=== PATIENT | male | born 1945 | race Caucasian/White ===

== ENCOUNTER 2024-10-03 14:46 | Outpatient (REF) | payer MEDICARE, SELFPAY ==
--- NOTE | 2024-10-03 14:53 | EMG_ITS ---
Chief complaint: Left arm shakes whenever he looks up or does overhead activities. He denies pain or numbness or weakness. Reason for referral: Evaluate for radiculopathy Referred by: Dr. Carlisle Procedure done: Left upper extremity NCS/EMG Precautions and/or limitations: None The limb temperature was monitored continuously and remained between 32-36 degrees C during the performance of the NCS. Ulnar motor NCS was performed with moderate elbow flexion between 70-90 degrees, with across-elbow distance of 10 cm. Nerve Conduction Studies Anti Sensory Summary Table ?Stim Site NR Onset (ms) Norm Onset (ms) Peak (ms) Norm Peak (ms) O-P Amp (?V) Norm O-P Amp Site1 Site2 Delta-0 (ms) Dist (cm) Jarvis (m/s) Norm Jarvis (m/s) Left Median Anti Sensory (2nd Digit) Wrist ? 3.7 4.4 <3.6 7.1 >10 Wrist 2nd Digit 3.7 14.0 38 Left Radial Anti Sensory (Thumb) Forearm ? 2.1 2.7 <3.1 13.5 Forearm Thumb 2.1 0.0 Left Ulnar Anti Sensory (5th Digit) Wrist ? 2.8 3.5 <3.7 3.6 >15.0 Wrist 5th Digit 2.8 14.0 50 Motor Summary Table ?Stim Site NR Onset (ms) Norm Onset (ms) O-P Amp (mV) Norm O-P Amp iAmp (mV) Amp (1st) (%) Site1 Site2 Delta-0 (ms) Dist (cm) Jarvis (m/s) Norm Jarvis (m/s) Left Median Motor (Abd Poll Brev) Wrist ? 4.8 <3.9 6.1 >4.5 6.8 100.0 Elbow Wrist 4.5 22.0 49 >45 Elbow ? 9.3 4.4 5.2 72.1 Left Ulnar Motor (Abd Dig Minimi) Wrist ? 2.9 <3.0 6.7 >5 8.1 100.0 B Elbow Wrist 4.4 18.0 41 >45 B Elbow ? 7.3 6.3 7.2 94.0 A Elbow B Elbow 1.6 10.0 62 >45 A Elbow ? 8.9 6.0 6.6 89.6 Left Ulnar (FDI) Motor (FDI) Wrist ? 4.5 <3.0 3.3 >5 4.1 100.0 B Elbow Wrist 4.3 18.0 42 >45 B Elbow ? 8.8 3.1 3.7 93.9 A Elbow B Elbow 1.5 10.0 67 >45 A Elbow ? 10.3 3.6 4.4 109.1 EMG ?Side Muscle Nerve Root Ins Act Fibs Psw Amp Dur Poly Recrt Int Pat Comment Left 1stDorInt Ulnar C8-T1 Nml Nml Nml Incr Incr 0 Nml Complete Left FlexCarRad Median C6-7 Nml Nml Nml Nml Nml 0 Nml Complete Left FlexCarpiUln Ulnar C8,T1 Nml Nml Nml Nml Nml 0 Nml Complete Left Biceps Musculocut C5-6 Nml Nml Nml Nml Nml 0 Nml Complete Left Triceps Radial C6-7-8 Nml Nml Nml Incr Incr 0 Nml Complete Left Deltoid Axillary C5-6 Nml Nml Nml Nml Nml 0 Nml Complete Paraspinal EMG ?Side Muscle Nerve Root Ins Act Fibs Psw Comment Left Cervical Upper Rami Nml Nml Nml Left Cervical Mid Rami Nml Nml Nml Left Cervical Lower Rami Incr 1+ 1+ FINDINGS: Left median motor nerve showed prolonged distal latency, normal amplitude and normal conduction velocity. Left ulnar motor nerve, recording at ADM, showed normal distal latency, normal amplitude and slow distal conduction velocity. When recording at FDI, showed prolonged distal latencies, small amplitude and slow conduction velocity distally. No conduction block across elbow. Left median sensory nerve showed prolonged peak latency and normal amplitude. Left ulnar sensory nerve showed showed normal peak latency but small amplitude. All other nerves tested were within normal. Concentric needle EMG was performed in selected muscles of the left upper extremity and cervical paraspinals. Study revealed signs of electric abnormalities as shown in the table above. Left triceps and FDI showed increased duration and amplitude. Left lower paraspinals showed increased insertional activity, PSWs and fibrillations. IMPRESSION: 1. This is an abnormal study. 2. There are electrodiagnostic findings suggestive of left C7/8 chronic radiculopathy. 3. 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 CLINICAL COMMENT: Results above show chronic cervical C7/8 radiculopathy. Less likely for ulnar neuropathy. Further clinical correlation recommended. Thank you for your kind referral. Tianna Liz MD, POLLY Board Certified, [place] [employer] and [employer] (ABPMR) Board Certified, [place] [employer] (ABEM) [place] [id number] [facility]
== END 2024-10-03 14:47 | disposition home or self-care (01) ==
LOC: HO.NEURO 14:46
PROVIDERS: PCP Internal Medicine; Visit Provider Internal Medicine
DX: R25.1 Tremor, unspecified (principal); R94.131 Abnormal electromyogram [EMG]
CPT/HCPCS: 95886; 95909

== ENCOUNTER → 2024-10-03 14:53 | Outpatient (BNV) | payer MEDICARE, SELFPAY | PROVIDERS: PCP Internal Medicine; Visit Provider Physical Medicine & Rehabilitation | DX: G56.02 Carpal tunnel syndrome, left upper limb (principal); M54.12 Radiculopathy, cervical region | CPT/HCPCS: 95886; 95909 ==